=== PATIENT | male | born 1960 | race Caucasian/White ===

== ENCOUNTER 2021-11-28 15:24 | Outpatient (CLI) | payer OTHER, SELFPAY ==
[2021-11-28 13:44] LABS: Albumin* 4.7 g/dL (3.3-5.0); Chloride* 101 mmol/L (96-114); Potassium* 4.4 mmol/L (3.6-5.1); Sodium* 138 mmol/L (135-149)
[2021-11-28 13:46] LABS: Carbon Dioxide* 31 mmol/L (20-32); Cholesterol* 193 mg/dL (90-199); Creatinine* 1.1 mg/dL (0.5-1.5); Estimated Glomerular Filt Rate 76 ml/min
[2021-11-28 13:47] LABS: Alanine Aminotransferase* 15 U/L (4-50); Alkaline Phosphatase* 58 U/L (40-150); Aspartate Amino Transferase* 24 U/L (12-35); Blood Urea Nitrogen* 22 mg/dL (7-30); Calcium* 9.4 mg/dL (8.4-10.6); Glucose* 105 mg/dL (60-115); HDL Cholesterol* 61 mg/dL (>=40); LDL Cholesterol Calculated 115 mg/dL (<100); Total Protein* 7.2 g/dL (6.0-8.3); Triglycerides* 84 mg/dL (40-149)
== END 2021-11-28 15:25 | disposition home or self-care (01) ==
PROVIDERS: PCP Family Medicine; Visit Provider Family Medicine
DX: Z00.00 Encounter for general adult medical examination without abnormal findings (principal); Z13.6 Encounter for screening for cardiovascular disorders
CPT/HCPCS: 80053; 80061

== ENCOUNTER 2022-01-24 13:14 | Outpatient (CLI) | payer OTHER, SELFPAY ==
[2022-01-24 21:45] LABS: Albumin* 4.6 g/dL (3.3-5.0)
[2022-01-24 21:48] LABS: Alkaline Phosphatase* 49 U/L (40-150); Aspartate Amino Transferase* 25 U/L (12-35); Bilirubin Direct* 0.2 mg/dL (0.0-0.5); Bilirubin Total* 1.4 mg/dL (0.1-1.5); Total Protein* 6.9 g/dL (6.0-8.3)
[2022-01-24 21:49] LABS: Alanine Aminotransferase* 19 U/L (4-50)
[2022-01-24 22:15] LABS: PSA Screen* 0.85 ng/mL (0.10-4.00)
== END 2022-01-24 13:15 | disposition home or self-care (01) ==
PROVIDERS: PCP Family Medicine; Visit Provider Family Medicine
DX: Z00.00 Encounter for general adult medical examination without abnormal findings (principal); D69.6 Thrombocytopenia, unspecified; D72.819 Decreased white blood cell count, unspecified; E78.00 Pure hypercholesterolemia, unspecified; R74.8 Abnormal levels of other serum enzymes; Z12.5 Encounter for screening for malignant neoplasm of prostate
CPT/HCPCS: 80076; 84153

== ENCOUNTER 2023-02-09 10:32 | Outpatient (REF) | payer OTHER, SELFPAY | END 2023-02-09 10:33 | disposition home or self-care (01) | LOC: NFLDREF 10:32 | PROVIDERS: PCP Family Medicine; Referring Provider Family Medicine; Visit Provider Family Medicine | DX: Z12.5 Encounter for screening for malignant neoplasm of prostate (principal); Z13.1 Encounter for screening for diabetes mellitus; Z13.6 Encounter for screening for cardiovascular disorders | CPT/HCPCS: 80053; 80061; 84153 ==

== ENCOUNTER 2023-05-18 08:32 | Outpatient (CLI) | payer OTHER, SELFPAY | END 2023-05-18 08:33 | disposition home or self-care (01) | LOC: NFLDREF 05-20 11:23 | PROVIDERS: PCP Family Medicine; Referring Provider Family Medicine; Visit Provider Family Medicine | DX: R74.8 Abnormal levels of other serum enzymes (principal) | CPT/HCPCS: 80076 ==

== ENCOUNTER 2023-06-05 07:11 | Outpatient (CLI) | payer OTHER, SELFPAY ==
--- NOTE | 2023-06-05 08:15 | W.ANESCHARGE ---
Anesthesia Charges Start Date/Time Anesthesia Start Date: 06/05/23 Anesthesia Start Time: 07:52 Stop Date/Time Anesthesia Stop Date: 06/05/23 Anesthesia Stop Time: 08:13
== END 2023-06-05 07:12 | disposition home or self-care (01) ==
LOC: OP CLINIC 07:11
PROVIDERS: PCP Family Medicine; Visit Provider Internal Medicine
DX: Z12.11 Encounter for screening for malignant neoplasm of colon (principal); K57.30 Diverticulosis of large intestine without perforation or abscess without bleeding; Z86.010 Personal history of colon polyps
CPT/HCPCS: 00812; 45378; J2704

== ENCOUNTER 2024-06-16 10:56 | Outpatient (CLI) | payer OTHER, SELFPAY | END 2024-06-16 10:57 | disposition home or self-care (01) | PROVIDERS: PCP Family Medicine; Visit Provider Family Medicine | DX: E78.00 Pure hypercholesterolemia, unspecified (principal); N40.1 Benign prostatic hyperplasia with lower urinary tract symptoms; R35.1 Nocturia; R74.8 Abnormal levels of other serum enzymes; R53.83 Other fatigue; Z11.59 Encounter for screening for other viral diseases; Z12.5 Encounter for screening for malignant neoplasm of prostate | CPT/HCPCS: 80053; 80061; 84270; 84402; 84403; 86803; G0103 ==

== ENCOUNTER 2025-01-11 08:11 | Outpatient (CLI) | payer OTHER, SELFPAY | END 2025-01-11 08:12 | disposition home or self-care (01) | LOC: NFLDREF 01-16 13:16 | PROVIDERS: PCP Family Medicine; Referring Provider Family Medicine; Visit Provider Physician Assistant Medical | DX: E78.00 Pure hypercholesterolemia, unspecified (principal) | CPT/HCPCS: 80061; 84450; 84460 ==